=== PATIENT | female | born 1990 | race Caucasian/White ===

== ENCOUNTER 2017-05-04 20:20 | Inpatient (IN) | payer OTHER, SELFPAY ==
[2017-05-04] MEDS ORDERED: LR / Pitocin 40 units/1000 ml 1,000 ML ONE (20:27)
--- NOTE | 2017-05-04 20:27 | PDOC.EVN ---
Event Note - Event Note Event Note: 05/04/17 @ 2020: patient now 8-9cm..will see if delivers as we are prepping for CS. NICU here. Anesthesia here.
--- NOTE | 2017-05-04 20:27 | PDOC.LDHP ---
Labor and Delivery H&P HPI: 05/04/17 at 2015: See other fill handwritten H&P in chart Allergies/Adverse Reactions: Allergies Allergy/AdvReac Type Severity Reaction Status Date / Time No Known Allergies Allergy Unverified 05/04/17 20:23 - Assessment Prior CS X 2 in active labor, 6-7cm, limited PNC. To OR for repeat CS. FULL NOTE IN PAPER RECORD. - Plan Plan: admit to L&D, anesthesia consult for pain management (For repeat )
[2017-05-04] MEDS ORDERED: Morphine PF 1 MG/ML SYR ONE (20:29)
[2017-05-04] MEDS ORDERED: Bicitra 30 ML UDCUP PO SCH (20:30)
[2017-05-04] MEDS ORDERED: Oxytocin 10 UNITS/ML VIAL ONE (20:30)
[2017-05-04] MEDS ORDERED: CEFAZOLIN/Water 2 GM/20 ML SYRINGE SLOW IVP SCH (20:30)
[2017-05-04] MEDS ORDERED: ePHEDrine/0.9% NaCl/PF SYRINGE 50 mg/10 ml ONE (20:30)
[2017-05-04] MEDS ORDERED: Ondansetron HCl/PF 4 MG/2 ML Vial ONE (20:30)
[2017-05-04 20:36] LABS: Hematocrit 25.8 % (36.0-47.0); Mean Platelet Volume 9.9 fL (7.4-10.4); Red Blood Cell (RBC) Count 3.74 mill/uL (4.20-5.40); White Blood Cell (WBC) Count 11.4 thou/uL (4.8-10.8)
[2017-05-04] MEDS ORDERED: Lidocaine 1% (PF) 30 ML VIAL ONE (20:50)
[2017-05-04] MEDS ORDERED: Promethazine HCl 25 MG/ML VIAL IM PRN (20:51)
[2017-05-04] MEDS ORDERED: Naloxone HCl 0.4 mg/ml Vial IVP PRN ×2 (20:51)
[2017-05-04] MEDS ORDERED: Meperidine HCl/PF 25 MG/ML VIAL SLOW IVP PRN (20:51)
[2017-05-04] MEDS ORDERED: Eucerin (Mineral Oil/Petrolatum,White) 30 gm Jar TOP PRN (20:51)
[2017-05-04] MEDS ORDERED: HYDROmorphone 2 MG/ML VIAL SLOW IVP PRN (20:51)
[2017-05-04] MEDS ORDERED: Naloxone HCl 0.4 mg/ml Vial IV PRN (20:51)
[2017-05-04] MEDS ORDERED: Ondansetron HCl/PF 4 MG/2 ML Vial IVP PRN ×2 (20:51)
[2017-05-04] MEDS ORDERED: Promethazine HCl 25 MG SUPP PR PRN (20:51)
[2017-05-04 20:52] LABS: #Basophils 0.1 thou/uL (0.0-0.2); #Eosinphils 0.1 thou/uL (0.0-0.7); #Lymphocytes 2.4 thou/uL (1.20-3.40); #Monocytes 0.7 thou/uL (0.11-0.59); #Neutrophils 8.1 thou/uL (1.40-6.50); %Basophils 1.2 % (0.0-1.0); %Monocytes 6.2 % (0.0-10.0); Anisocytosis SLIGHT = 6-15 cells (100X) (0-5/hpf); Hypochromia SLIGHT = 6-15 cells (100X) (0-5/hpf); Microcytosis SLIGHT = 6-15 cells (100X) (0-5/hpf)
[2017-05-04] MEDS ORDERED: Acetaminophen 1,000 MG in Premix Bag 1 BAG IVPB PRN (20:52)
[2017-05-04] MEDS ORDERED: Ketorolac Tromethamine 30 MG/ML VIAL IVP SCH (21:00)
[2017-05-04] MEDS ORDERED: Communication Order-Pharmacy FS SCH (21:00)
[2017-05-04 21:40] LABS: CO2 Tension (PaCO2) 56.3 mmHg (44.0-56.0)
[2017-05-04] MEDS ORDERED: Ketorolac Tromethamine 30 MG/ML VIAL ONE (21:47)
[2017-05-04 22:36] VITALS: BMI 29.2
[2017-05-04] MEDS: Azithromycin 500 MG in Sodium Chloride 0.9% 250 ML 250 ML IVPB SCH (23:13)
[2017-05-04 23:49] LABS: Amphetamine Detected (NotDetected); Methadone Not Detected (NotDetected); Methamphetamine Detected (NotDetected)
--- NOTE | 2017-05-05 00:46 | OP ---
DATE OF PROCEDURE: 05/04/2017 TIME OF : 2053 hours LOCATION OF SERVICE: Labor and Delivery OR. PREOPERATIVE DIAGNOSES: 1. The patient in active labor with 2 prior C-sections. 2. Sporadic care. 3. Term gestation. POSTOPERATIVE DIAGNOSES: 1. The patient in active labor with 2 prior C-sections. 2. Status post repeat . PROCEDURE: Repeat low transverse section via Pfannenstiel skin incision. SURGEON: Donald Garcia MD MONEY COUNTER: Prabhakar Ignacio MD ANESTHESIA: Spinal. ANTIBIOTICS: Ancef preincision and 500 mg of Zithromax ordered (pending and will be given in recove ry). IV FLUIDS: 1800 mL crystalloid. ESTIMATED BLOOD LOSS: About 500-600 mL URINE OUTPUT: Concentrated urine without blood contamination (for full ins and outs, please see OR record). PATHOLOGY: None. Laboratory specimen sent, is a cord gas. FINDINGS: 1. There was a thin lower uterine segment compatible with a myometrial dehiscence, but serosa was i ntact. 2. No blood in the abdomen. 3. A child in cephalic presentation, male, delivered without incident. 4. Three-vessel cord. 5. Intact placenta. 6. Hemostasis post-hysterotomy repair. DISPOSITION: To recovery room in good and stable condition. TECHNIQUE: After proper informed consent was explained to the patient, she was taken to the C-secti on room #1 for a repeat . It is important to note that prior to prepping the abdomen, and just after spinal anesthetic, the patient was reexamined to make sure the patient was not having an eminent delivery. Her exam remained 8-cm dilation. Presentation was cephalic. Prepped and draped in the usual sterile fashion occurred with the patient having SCDs placed. Low transverse skin inci gila was made in a Pfannenstiel fashion. Bovie cautery was used to dissect the subcutaneous tissue down to the level of the fascia. Fascia was identified and entered in a transverse fashion using Ever vie cautery on cut mode. Care was taken to avoid underlying structures. Rectus muscles were separa rinku away from the midline, which they already were due to diastasis, and the underlying peritoneum w as entered high by finger dissection. No damage to visceral organs was noted. An Inocencio retractor was placed for visualization of the field. A low transverse hysterotomy was made after the findings were noted as above. The child was delivered after rupture of membranes revealed moderate meconium . This information was relayed to the NICU team present in the room. The child was delivered witho ut complication in the usual manner. Cord was clamped, transected, and the baby was handed to the N ICU team. Placenta was manually removed without incident. Dry sponge was used to curettage the hoh rine cavity, signifying the lack of any retained products of conception. We closed the uterus with #1 Vicryl x2 in a running locking suture for the first and in a running nonlocking suture for the se cond once again the hysterotomy was closed in a two-layer closure using #1 Vicryl. After copious ir rigation and after confirming hemostasis, the rectus muscles were reapproximated in the midline to a void diastasis recti. This was done with 2 stitches of 2-0 chromic, which were placed in a horizont al mattress. Once again, 2 horizontal mattress sutures were placed to reapproximate the rectus musc les in the midline and to resolve existing diastasis recti. Tissue above the fascia was again inspe cted and noted to be hemostatic and the fascia was closed with 0 PDS x2 in a running nonlocking fash ion. No complications were noted. Copious irrigation of the subcutaneous tissue was then done and since it was less than 2 cm, it was not closed. The skin edges were reapproximated with tarsha in the usual fashion. She was transported to recovery room with a Read in place, alert, oriented, and without complication. The baby went to the NICU for observation. A cord gas was sent and the resu lts are pending.
[2017-05-05] MEDS ORDERED: Lactated Ringer's 1,000 ML IV SCH (01:07)
[2017-05-05] MEDS ORDERED: LR w/ Pitocin 40 units/1000 ML BAG IV SCH (01:07)
[2017-05-05] MEDS ORDERED: Acetaminophen 325 MG TAB PO PRN (01:07)
[2017-05-05] MEDS: diphenhydrAMINE 50 MG/ML VIAL IVP PRN ×2 (01:25→11:15)
[2017-05-05] MEDS ORDERED: Adacel (T-DAP) 0.5 ML VIAL IM ONE (01:30)
[2017-05-05] MEDS: Ketorolac Tromethamine 30 MG/ML VIAL IVP SCH ×4 (02:39→17:20)
[2017-05-05 05:14] LABS: Hematocrit 18.2 % (36.0-47.0); Mean Platelet Volume 9.3 fL (7.4-10.4); Red Blood Cell (RBC) Count 2.58 mill/uL (4.20-5.40); White Blood Cell (WBC) Count 12.2 thou/uL (4.8-10.8)
--- NOTE | 2017-05-05 05:46 | PDOC.EVN ---
Event Note - Event Note Event Note: 05/05/17 at 0545: BLOOD TRANSFUSION NOTE: I was just contacted by the patient's nurse that the AM hemoglobin which was 8 is now 5.6. She is nontachycardic and non-hypotensive. She is without acute distress. Nonetheless, due to the extremely low value, we will transfuse 2 units packed cells. There was evidence that she was dehydrated on its presentation (concentrated urine) so that 8 value may have been false. No clinical evidence of intraabdominal bleeding at this point. Transfusion ordered.
[2017-05-05] MEDS ORDERED: diphenhydrAMINE 50 MG CAP PO PRN (05:48)
--- NOTE | 2017-05-05 05:51 | PDOC.PP ---
Post Progress Note Post Day #: 1 Subjective: Patient is resting and has no new complaints. No abdominal pain that seems more than routine postop. PO intake tolerated: no Vital Signs (12 hours) Temp Pulse Resp BP 05/05/17 04:26 98.5 F 101 H 17 05/05/17 02:00 98.5 F 101 H 17 120/57 L 05/05/17 01:07 98.4 F 104 H 18 114/56 L 05/04/17 21:00 97.9 F 76 18 05/04/17 20:23 97.9 F Weight Weight 165 lb - Physical Examination General: NAD Cardiovascular: no m/r/g Respiratory: clear to auscultation bilaterally Abdominal: no distention, appropriately TTP Extremities: negative homans (B) Deviation from normal: Dressing in place over tarsha. Perineum: No vaginal bleeding. Psychiatric: A&Ox3 Result Diagrams: 05/05/17 04:47 Additional Labs: Post Labs Blood Type A NEGATIVE 05/04/17 20:20 Hep Bs Antigen Non-Reactive S/CO (NonReactive) 05/04/17 20:20 (1) Iron deficiency anemia during Code(s): O99.019 - ANEMIA COMPLICATING , UNSPECIFIED TRIMESTER; D50.9 - IRON DEFICIENCY ANEMIA, UNSPECIFIED Status: Acute (2) Blood transfusion during current hospitalisation Code(s): GYD5185 - Status: Acute (3) delivery delivered Code(s): O82 - ENCOUNTER FOR DELIVERY WITHOUT INDICATION Status: Acute - Assessment/Plan Patient is less than 12 hours postoperative from a repeat (#3) which did not have excessive blood loss. There was anemia pre-surgery with starting hemoglobin at 8 which may have been falsely elevated due to dehydration. I have just ordered 2 units PRBCs (see event note) for her hemoglobin of 5.6. Her pulse is not overtly tachycardia with a current value of 89 although it was 101 prior. BP is stable. I do not suspect intraabdominal bleed at this time. 1. 2 units 2. Premedicate prior to each with tylenol and benadryl 3. Patient states she had blood given last csection for same reason 4. Check hematocrit after second unit, in the evening lab.
[2017-05-05] MEDS: Acetaminophen 500 MG TAB PO SCH (07:04)
--- NOTE | 2017-05-05 07:27 | PDOC.EVN ---
Event Note - Event Note Event Note: 05/05/17 at 0730: Blood has started. Urine still concentrated. UOP still being tracked. UTOX has returned POSITIVE for amphetamines/meth. Cases management ordered.CPS has taken the other children in the past. Will follow.
[2017-05-05] MEDS ORDERED: HYDROcodone/Acetaminophen 5/325 mg Tablet PO PRN (09:00)
[2017-05-05] MEDS: Ferrous Sulfate 325 MG TAB PO SCH ×2 (10:17→17:19)
[2017-05-05] MEDS: Prenatal Vitamin 1 TAB PO SCH (10:17)
[2017-05-05] MEDS: Docusate Calcium (SURFAK) 240 MG CAP PO SCH ×2 (10:17→21:48)
[2017-05-05] MEDS: Azithromycin 500 MG in Sodium Chloride 0.9% 250 ML 250 ML IVPB SCH (21:27)
[2017-05-06] MEDS: Ketorolac Tromethamine 30 MG/ML VIAL IVP SCH (03:48)
[2017-05-06 05:46] LABS: Hematocrit 21.5 % (36.0-47.0)
[2017-05-06] MEDS: Acetaminophen 500 MG TAB PO SCH (06:01)
[2017-05-06] MEDS: Ibuprofen 800 MG TAB PO SCH ×3 (06:01→21:49)
[2017-05-06] MEDS: HYDROcodone/Acetaminophen 5/325 mg Tablet PO PRN ×3 (06:04→18:10)
--- NOTE | 2017-05-06 07:22 | PRG ---
DATE OF SERVICE: 05/06/2017 The patient is postoperative day #2 status post a repeat lower transverse section at term. The patient today reports she is having good pain control, tolerating p.o., voiding on her own and is ambulating. The patient denies any dizziness, lightheadedness, headache or chest pain. PHYSICAL EXAMINATION: VITAL SIGNS: Blood pressure 109/67, temperature 98.2, pulse is 70, respiratory rate is 16. GENERAL: She appears to be in no acute distress. She is alert and oriented, and cooperative and pl easant to interact with. HEENT: Normocephalic, atraumatic. ABDOMEN: Fundus is firm at umbilicus, -1, incision is clean, dry, and intact tarsha soft, no indur ation or erythema. EXTREMITIES: Nontender, nonedematous. Post transfusion hemoglobin 7.1, hematocrit 21.5. ASSESSMENT AND PLAN: The patient is postop day #2, status post repeat at term. Anticipa te evaluation for discharge tomorrow. Anemia, status post 2 units of packed red blood cells, is now asymptomatic. Will continue iron.
[2017-05-06] MEDS: Prenatal Vitamin 1 TAB PO SCH (10:06)
[2017-05-06] MEDS: Ferrous Sulfate 325 MG TAB PO SCH ×2 (10:06→18:05)
[2017-05-06] MEDS: Docusate Calcium (SURFAK) 240 MG CAP PO SCH ×2 (10:07→21:49)
[2017-05-06] MEDS: Azithromycin 500 MG in Sodium Chloride 0.9% 250 ML 250 ML IVPB SCH (21:49)
[2017-05-06] MEDS: Sodium Chloride 0.9% 20 ML ONE ×2 (21:49→21:50)
[2017-05-07] MEDS: Ibuprofen 800 MG TAB PO SCH (05:15)
--- NOTE | 2017-05-07 06:42 | PDOC.PP ---
Post Progress Note Post Day #: 3 PO intake tolerated: yes Flatus: yes Ambulation: yes Vital Signs (12 hours) Temp Pulse Resp BP 05/06/17 20:00 98.2 F 88 16 127/65 Weight Weight 165 lb - Physical Examination General: NAD Cardiovascular: no m/r/g, RRR Respiratory: clear to auscultation bilaterally, non-labored breathing Abdominal: + bowel sounds, no distention, appropriately TTP Extremities: negative homans (B) Skin: CS incision dry & intact, no rash Psychiatric: A&Ox3, normal affect Result Diagrams: 05/06/17 05:03 Additional Labs: Post Labs Blood Type A NEGATIVE 05/04/17 20:20 Hep Bs Antigen Non-Reactive S/CO (NonReactive) 05/04/17 20:20 (1) Blood transfusion during current hospitalisation Code(s): PSP2852 - Status: Acute (2) History of delivery Code(s): Z98.891 - HISTORY OF UTERINE SCAR FROM PREVIOUS SURGERY Status: Acute (3) Iron deficiency anemia during Code(s): O99.019 - ANEMIA COMPLICATING , UNSPECIFIED TRIMESTER; D50.9 - IRON DEFICIENCY ANEMIA, UNSPECIFIED Status: Acute (4) Methamphetamine use Code(s): F15.10 - OTHER STIMULANT ABUSE, UNCOMPLICATED Status: Acute - Assessment/Plan dc home on motrin t3 and fe sulfate
[2017-05-07] MEDS: Ferrous Sulfate 325 MG TAB PO SCH (08:31)
[2017-05-07] MEDS: Prenatal Vitamin 1 TAB PO SCH (08:31)
[2017-05-07] MEDS: Docusate Calcium (SURFAK) 240 MG CAP PO SCH (08:31)
[2017-05-07 08:55] VITALS: BP 128/80; TEMP 98.1
== END 2017-05-07 10:20 | disposition home or self-care (01) | DRG 765 ==
LOC: L&D/OP 20:20 → L&D 21:33 → 3SW 05-05 01:00
PROVIDERS: ADMIT Obstetrics & Gynecology; ATTEND Obstetrics & Gynecology
PROC: 10D00Z1 Extraction of Products of Conception, Low, Open Approach (ICD-10-PCS; principal; 2017-05-04)
PROC: 3E0334Z Introduction of Serum, Toxoid and Vaccine into Peripheral Vein, Percutaneous Approach (ICD-10-PCS; 2017-05-04)
PROC: 30233N1 Transfusion of Nonautologous Red Blood Cells into Peripheral Vein, Percutaneous Approach (ICD-10-PCS; 2017-05-05)
DX: O34.211 Maternal care for low transverse scar from previous cesarean delivery (principal); O99.324 Drug use complicating childbirth; N85.8 Other specified noninflammatory disorders of uterus; D50.9 Iron deficiency anemia, unspecified; F15.90 Other stimulant use, unspecified, uncomplicated; E86.0 Dehydration; Z3A.38 38 weeks gestation of pregnancy; Z37.0 Single live birth; O99.03 Anemia complicating the puerperium
CPT/HCPCS: 36415; 36430; 80306; 82805; 85014; 85018; 85025; 85027; 85461; 86780; 86850; 86900; 86901; 87340; 87389; 90384; 96372; A4216; J0456; J1200; J1885; J2001; J2274; J2310; J2405; J2590; J7050; P9016